=== PATIENT | male | born 1955 | race Asian ===

== ENCOUNTER → 2018-01-29 | Day surgery (SDC) | payer MEDICAID ==
[~2018-01-29] VITALS: Ht 175.3 cm; Wt 112.0 kg
[~2018-01-29] MED LIST: ALLO100T PO; AMLO-511 PO; FAMO20 PO; FLUO-191 PO; FURO40 PO; FURO80 PO; FentaNYL CITRATE-PF 100 MCG/2 ML VIAL ONE; LIDOCAINE/PF 2% 5 ML VIAL IM ONE; METO-558 PO; MIDAZOLAM HCL 2 MG/2 ML VIAL IVP ONE; MIDAZOLAM HCL 5 MG/ML VIAL ONE; PROPOFOL 1% 20 ML VIAL IVP ONE; SODIUM CHLORIDE 0.9% 1,000 ML IV ONE; TRAZ-219 PO
== END | disposition home or self-care (01) ==
LOC: SURGERY 11:16
PROVIDERS: ATTEND Internal Medicine Gastroenterology
DX: D12.2 Benign neoplasm of ascending colon (principal); K63.5 Polyp of colon; K57.30 Diverticulosis of large intestine without perforation or abscess without bleeding; K64.0 First degree hemorrhoids; K63.89 Other specified diseases of intestine; I10 Essential (primary) hypertension; G47.33 Obstructive sleep apnea (adult) (pediatric); J84.89 Other specified interstitial pulmonary diseases; E66.3 Overweight; J45.998 Other asthma; K21.9 Gastro-esophageal reflux disease without esophagitis; Z99.81 Dependence on supplemental oxygen; Z68.36 Body mass index [BMI] 36.0-36.9, adult; Z79.899 Other long term (current) drug therapy; Z88.8 Allergy status to other drugs, medicaments and biological substances
CPT/HCPCS: 45380; 45381; 45385; 88305; 93005; C1769; J2250; J2704; J3010; J3490; J7030